=== PATIENT | female | born 1960 | race Caucasian/White ===

== ENCOUNTER 2016-07-28 03:13 | Emergency (ER) | payer OTHER ==
[~2016-07-28] VITALS: Ht 160 cm; Wt 56.8 kg
[~2016-07-28 03:13] MED LIST: ACIPHEX20 MG PO; ADVAIR 250/501 DISK IH; BUSPAR15 MG PO; CLINDAMYCIN HC150 MG PO; COMBIVENT RESPIM4 GM IH; CYANOCOBALAM1000 MCG PO; CYMBALTA60 MG PO; DEPAKOTE125 MG PO; GABAPENTIN600 MG PO; HYDROCHLOROTH12.5 M3 PO; HYDROCODON-ACE1 EAC7 PO; KLONOPIN0.5 M1 PO; LOW DOSE ASPIRI81 M1 PO; NUVIGIL150 MG PO; PLAVIX75 MG PO; PROAIR HFA8.5 GM IH; THEO-DUR,THEOC200 MG PO; ZANTAC150 MG PO
[2016-07-28 03:29] VITALS: BP 113/80
[2016-07-28 04:00] LABS: HEMATOCRIT 37.7 % (36.0-46.0); MCH 32.7 PG (29.0-34.0); MCHC 34.7 G/DL (30.0-36.0); PLATELET COUNT 270 K/uL (156-360); RBC DIS.WIDTH-CV 13.2 % (11.8-14.6); RBC DIS.WIDTH-SD 43.6 % (39-53); RED BLOOD COUNT 4.01 M/uL (3.80-5.20); WHITE BLOOD COUNT 5.5 K/uL (4.1-10.2)
[2016-07-28 04:13] LABS: CHLORIDE 100 mEq/L (99-109); POTASSIUM 3.5 mEq/L (3.7-5.4); SODIUM 136 mEq/L (136-147)
[2016-07-28 04:14] LABS: GLUCOSE 98 mg/dL (70-99)
[2016-07-28 04:16] LABS: ANION GAP 9 MEQ/L (2-14)
[2016-07-28 04:18] LABS: GFR ESTIMATE (CALCULATED) > 59 mL/min/
[2016-07-28 04:19] LABS: UREA NITROGEN (BUN) 8 mg/dL (9-23)
[2016-07-28 04:21] LABS: TROP-I INTERPRETATION NEGATIVE; TROPONIN-I < 0.01 ng/mL (0.0-0.30)
== END 2016-07-28 06:35 | disposition left against medical advice (07) ==
LOC: EME 03:13
DX: R07.9 Chest pain, unspecified (principal); Z53.21 Procedure and treatment not carried out due to patient leaving prior to being seen by health care provider; R06.02 Shortness of breath; I10 Essential (primary) hypertension; J45.909 Unspecified asthma, uncomplicated; J44.9 Chronic obstructive pulmonary disease, unspecified; Z86.73 Personal history of transient ischemic attack (TIA), and cerebral infarction without residual deficits
CPT/HCPCS: 71020; 80048; 84484; 85027; 93005